=== PATIENT | female | born 1980 | race Caucasian/White ===

== ENCOUNTER 2020-03-24 20:36 | Emergency (ER) | payer BC ==
--- NOTE | 2020-03-24 20:38 | ERPHSYRPT ---
- History of Present Illness Time Seen by Provider: 03/24/20 20:38 Source: patient Exam Limitations: no limitations Physician History: This is a 39-year-old white female who sees a pain specialist for headaches and for back pain. She sees Dr. Webber for her pain medication. She has a MRI scan of the spine scheduled for tomorrow. She has had a headache that has been persistent for 4 days. It is typical for her migraines. She only been using [id number] medication which has not helped. She is not on any medications for migraine headaches. She has an appointment to see a neurologist on 04/01/2020. She denies trauma to her head. She has no bleeding disorders. She has no visual changes. Timing/Duration: day(s) (Approximately 4) Quality: aching, throbbing Head Pain Location: global Severity of Pain-Max: moderate Severity of Pain-Current: moderate Recent Head Trauma: occasional headaches Associated Symptoms: denies symptoms, seizures, No neck pain, No sensitive to light, No stiff neck, No vision changes, No visual disturbance Previous symptoms: same symptoms as today, no recent treatment Allergies/Adverse Reactions: nortriptyline Allergy (Verified 03/24/20 21:02) Home Medications: No Reportable Medications [No Reported Medications] 03/24/20 [History] Travel Risk - International Travel Have you traveled outside of the country in past 3 weeks: No - Coronavirus Screening Are you exhibiting any of the following symptoms?: No Close contact with a COVID-19 positive Pt in past 14-21 Days: No - Review of Systems Constitutional: No Symptoms Eyes: No Symptoms Ears, Nose, & Throat: No Symptoms Respiratory: No Symptoms Cardiac: No Symptoms Abdominal/Gastrointestinal: No Symptoms Genitourinary Symptoms: No Symptoms Musculoskeletal: No Symptoms Skin: No Symptoms Neurological: Headache, Sensory Changes Psychological: No Symptoms Endocrine: No Symptoms Hematologic/Lymphatic: No Symptoms Immunological/Allergic: No Symptoms All Other Systems: Reviewed and Negative - Past Medical History Pertinent Past Medical History: Yes Neurological History: Seizures Cardiac History: No Pertinent History Respiratory History: No Pertinent History Endocrine Medical History: No Pertinent History Musculoskeletal History: No Pertinent History - Past Surgical History Past Surgical History: Yes Neuro Surgical History: No Pertinent History Cardiac: No Pertinent History Respiratory: No Pertinent History Gastrointestinal: No Pertinent History Genitourinary: No Pertinent History Musculoskeletal: No Pertinent History Female Surgical History: No Pertinent History - Nursing Vital Signs Nursing Vital Signs: Initial Vital Signs Temperature 99.1 F 03/24/20 20:45 Pulse Rate 79 03/24/20 20:45 Respiratory Rate 18 03/24/20 20:45 Blood Pressure 129/76 03/24/20 20:45 O2 Sat by Pulse Oximetry 99 03/24/20 20:45 Pain Scale Pain Intensity 8 - Physical Exam General Appearance: mild distress, alert, anxiety Eye Exam: PERRL/EOMI, eyes nml inspection Ears, Nose, Throat Exam: normal ENT inspection, moist mucous membranes Neck Exam: normal inspection, non-tender, supple, full range of motion Respiratory Exam: normal breath sounds, lungs clear, No chest tenderness, No respiratory distress Cardiovascular Exam: regular rate/rhythm, normal heart sounds, normal peripheral pulses Gastrointestinal/Abdominal Exam: No tenderness Back Exam: normal inspection, normal range of motion, No CVA tenderness, No vertebral tenderness Extremity Exam: normal inspection, normal range of motion, pelvis stable Mental Status Exam: alert, oriented x 3, cooperative medical front desk coordinator Exam: normal hearing, normal speech, PERRL Coordination/Gait Exam: normal finger to nose, normal gait, normal cerebellar function Motor/Sensory Exam: no motor deficit, no sensory deficit, no pronator drift Skin Exam: normal color, warm, dry Lymphatic Exam: No adenopathy SpO2 Interpretation: normal O2 Delivery: Room Air - Course Nursing assessment & vital signs reviewed: Yes - Progress Progress: improved, re-examined Air Movement: good Progress Note: 03/24/20 21:14 Medical decision making: This patient did not have any head trauma. She states her headache is typical migraine for her. She has an MRI scheduled for tomorrow and does not want a CAT scan of her head today. She has a ride home and will provide her with Dilaudid and Phenergan intramuscularly. Blood Culture(s) Obtained: No Antibiotics given: No Counseled pt/family regarding: diagnosis, need for follow-up - Departure Departure Disposition: Home Clinical Impression: Migraine headache Condition: Stable Critical Care Time: No Referrals: FRANCO VASQUEZ MD [Primary Care Provider] - Additional Instructions: Keep your appointment for MRI tomorrow. Follow-up with your neurologist appointment on 04/01/2020. Call your prescribing physician tomorrow for further management of your headache if it persists.
[2020-03-24] MEDS ORDERED: Phenergan 25 MG INJ IM ONE (21:16)
[2020-03-24] MEDS ORDERED: Hydromorphone 1 mg/ml Injection IM ONE (21:16)
[2020-03-24] MEDS ORDERED: Phenergan 25 MG INJ ONE (21:18)
[2020-03-24] MEDS ORDERED: Hydromorphone 1 mg/ml Injection ONE (21:18)
[2020-03-24 22:05] VITALS: BP 120/61; PULSE 74; O2SAT 98
== END 2020-03-24 21:57 | disposition home or self-care (01) ==
LOC: ED 20:36
DX: G43.909 Migraine, unspecified, not intractable, without status migrainosus (principal)
CPT/HCPCS: 96372; 99284; J1170; J2550

== ENCOUNTER 2025-03-03 13:21 | Emergency (ER) | payer BC ==
[2025-03-03 13:52] VITALS: PULSE 80; RESP 14; TEMP 97.4; O2SAT 99
[2025-03-03] MEDS ORDERED: ZOFRAN ODT 4 MG ONE (13:56)
[2025-03-03] MEDS: ZOFRAN ODT 4 MG PO ONE (13:57)
--- NOTE | 2025-03-03 13:57 | XRAY ---
Indication: Lateral foot injury. Comparison: None 3 nonweightbearing views right foot demonstrates tiny posterior/plantar heel spurs and small curvilinear cuboid/tiny navicular accessory ossicles. No acute bony, articular, or soft tissue abnormalities.
--- NOTE | 2025-03-03 14:05 | ERPHSYRPT ---
- History of Present Illness Time Seen by Provider: 03/03/25 14:06 Source: patient Exam Limitations: no limitations Patient Subjective Stated Complaint: patient fell down 2 steps about an hour ago and hurt her right foot Triage Nursing Assessment: patient arrives to ed via private vehicle in w/c, patient able to transfer over to ed bed with assist of one, unable to bear weight on right foot, pedal pulse palpable, patient has swelling/bruising noted to right foot/ankle Physician History: 44-year-old female with history of seizures, anxiety, depression presents to our ED for evaluation of pain to her right foot. Patient states she inverted her right foot. Injury occurred approximately 2 hours prior to arrival. No other injuries reported. Pain described as an ache that is localized. No radiation. Pain worse with weightbearing palpation and movement. Patient otherwise feels well. No associated ankle knee or hip pain. Patient voices no other complaints or concerns at this time. Portions of this note were created with voice recognition technology. There may be grammatical, spelling, punctuation or sound alike errors Method of Injury: twisted Occurred: just prior to arrival Quality: constant Severity of Pain-Max: moderate Severity of Pain-Current: mild Lower Extremities Pain: foot: right Modifying Factors: Improves With: movement (Weightbearing) Associated Symptoms: other (Mild nausea secondary to pain) Allergies/Adverse Reactions: nortriptyline Allergy (Verified 03/03/25 13:37) Hx Tetanus, Diphtheria Vaccination/Date Given: Yes Hx Influenza Vaccination/Date Given: No Hx Pneumococcal Vaccination/Date Given: No Travel Risk - International Travel Have you traveled outside of the country in past 3 weeks: No - Emerging Infectious Disease Are you exhibiting symptoms associated with any current EIDs: No - Review of Systems All Other Systems: Reviewed and Negative - Past Medical History Pertinent Past Medical History: Yes Neurological History: Seizures Cardiac History: No Pertinent History Respiratory History: No Pertinent History Endocrine Medical History: No Pertinent History Musculoskeletal History: No Pertinent History Psycho-Social History: Anxiety, Depression Other Medical History: epilepsy - Past Surgical History Past Surgical History: Yes Neuro Surgical History: No Pertinent History Cardiac: No Pertinent History Respiratory: No Pertinent History Gastrointestinal: Cholecystectomy Genitourinary: No Pertinent History Musculoskeletal: No Pertinent History Female Surgical History: Hysterectomy Other Surgical History: fusion in back- L4, L5, carpel tunnel bilat hands - Female History Hx Now: No - Social History Smoking Status: Never smoker Exposure to second hand smoke: No Drug Use: none - Social Determinants of Health Will the patient participate in the screening: Yes Do you worry about a steady place to live?: No Do you have any problems with any of the following?: No known problems In the past 12 months,have you had to go without utilities?: No Transportation Issues: No Has anyone in your support network made you feel unsafe?: No Have you or anyone in your house had to go w/o enough food: No - Nursing Vital Signs Nursing Vital Signs: Initial Vital Signs Temperature 97.4 F 03/03/25 13:21 Pulse Rate 80 03/03/25 13:21 Respiratory Rate 14 03/03/25 13:21 Blood Pressure 146/82 03/03/25 13:21 O2 Sat by Pulse Oximetry 99 03/03/25 13:21 Pain Scale Pain Intensity 8 - Physical Exam General Appearance: alert Eyes, Ears, Nose, Throat Exam: moist mucous membranes Neck Exam: non-tender, supple Cardiovascular/Respiratory Exam: regular rate/rhythm, no respiratory distress Gastrointestinal/Abdominal Exam: non-tender Back Exam: normal inspection, No vertebral tenderness Hips Exam: bilateral: non-tender, normal inspection, normal range of motion, no evidence of injury Legs Exam: bilateral leg: non-tender, normal inspection, normal range of motion, no evidence of injury Knees Exam: bilateral knee: non-tender, normal inspection, normal range of motion, no evidence of injury Ankle Exam: bilateral ankle: non-tender, normal inspection, normal range of motion, no evidence of injury Foot Exam: right foot: pain, soft tissue tenderness, swelling, other (The involved right lower extremities neurovasc intact distally compartments are soft cap refill less than 2 seconds. There is swelling and tenderness over the anterolateral aspect of the right foot. No open or draining lesions), left foot: non-tender, normal inspection, normal range of motion, no evidence of injury Neuro/Tendon Exam: normal sensation, normal motor functions Mental Status Exam: alert, oriented x 3, cooperative Skin Exam: normal color, warm, dry SpO2 Interpretation: normal SpO2: 99 O2 Delivery: Room Air - Course Nursing assessment & vital signs reviewed: Yes - Radiology Exams Foot X-ray Interpretation: Teleradiologist Report (No fracture or dislocation.) Ordered Tests: Active Orders 24 hr Category Date Time Status FOOT (MINIMUM 3 VIEWS) Stat Exams 03/03/25 13:41 Completed Medication Summary Discontinued Medications Generic Name Dose Route Start Last Admin Trade Name Brad PRN Reason Stop Dose Admin Ketorolac Tromethamine 30 mg 03/03/25 14:03 Ketorolac Tromethamine 30 Mg/Ml Inj IM 03/03/25 14:04 STAT ONE Ondansetron HCl 4 mg 03/03/25 13:53 03/03/25 13:57 Zofran 4 Mg/Udtablet Orally Disintegrating PO 03/03/25 13:54 4 mg STAT ONE Administration Ondansetron HCl Confirm 03/03/25 13:56 Zofran 4 Mg/Udtablet Orally Disintegrating Administered 03/03/25 13:57 Dose 4 mg .ROUTE .STK-MED ONE - Progress Progress: improved Progress Note: 44-year-old female inverted right foot. Physical exam reveals some swelling and tenderness to the anterolateral aspect of the right foot. No open or draining lesions. X-ray negative for fracture or dislocation. Patient unable to bear weight. Patient referred to the orthopedic clinic. Crutches provided. A prescription for Toradol forwarded to patient's pharmacy. Patient received IM Toradol in our ED. No indication for further workup will discharge home. Patient voices no other complaints or concerns at this time. Portions of this note were created with voice recognition technology. There may be grammatical, spelling, punctuation or sound alike errors History obtained from patient Differential diagnosis includes fracture, sprain, contusion, tendinitis Dr. Reeder independently reviewed and interpreted x-ray of the right foot. No fracture or dislocation observed. This is a preliminary read. Formal read by Dr. Moss shows no fracture or dislocation. Patient received Toradol for pain control. Complexity of problems addressed is moderate acute complicated. No critical care time. Complexity of data reviewed and analyzed is moderate. Test ordered test reviewed results analyzed and correlated clinically with history and physical exam. Risk of complication and or risk of morbidity/mortality of patient management is moderate. Patient received IM Toradol in our ED. A prescription for the same was forwarded to patient's pharmacy. Vital stable. Time spent to discharge patient is approximately 15 minutes. Plan of care established for shared decision making. No social determinants of health present to impede follow-up. 03/03/25 14:15 Counseled pt/family regarding: diagnosis, need for follow-up, rad results - Departure Departure Disposition: Home Clinical Impression: Foot sprain Condition: Stable Critical Care Time: No Referrals: ALEJANDRA RAO IMPREGNATOR OPERATOR [Primary Care Provider, UNKNOWN] - Follow up/PCP as directed Additional Instructions: Discharge/Care Plan SANTI BATISTA was seen on 03/03/25 in the Emergency Room. The patient was counseled regarding Diagnosis,Lab results, Imaging studies, need for follow up and when to return to the Emergency Room. Prescriptions given: Discharge Note I have spoken with the patient and/or caregivers. I have explained the patient's condition, diagnosis and treatment plan based on the information available to me at this time. I have answered the patient's and/or caregiver's questions and addressed any concerns. The patient and/or caregivers have as good understanding of the patient's diagnosis, condition and treatment plan as can be expected at this point. The vital signs have been stable. The patient's condition is stable and appropriate for discharge from the emergency department. The patient will pursue further outpatient evaluation with the primary care physician or other designated or consulting physician as outlined in the discharge instructions. The patient and/or caregivers are agreeable to this plan of care and follow-up instructions have been explained in detail. The patient and/or caregivers have received these instruction. The patient/and or caregivers are aware that any significant change in condition or worsening of symptoms should prompt an immediate return to this or the closest emergency department or call 911. Prescriptions: Ketorolac Trometh 10 mg Tab [TORAdol 10 MG TABLET] 10 mg PO TID 5 Days #15 tablet Outpatient Orders: Ortho Referral Time Frame: 1 Day, Facility: [facility], Location: [facility]THO CLINIC
[2025-03-03] MEDS ORDERED: TORAdol 30 mg Injection ONE (14:11)
[2025-03-03] MEDS: TORAdol 30 mg Injection IM ONE (14:12)
[2025-03-03 14:35] VITALS: BP 101/79
== END 2025-03-03 14:35 | disposition home or self-care (01) ==
LOC: ED 13:21
DX: S93.601A Unspecified sprain of right foot, initial encounter (principal); W10.9XXA Fall (on) (from) unspecified stairs and steps, initial encounter; Z79.899 Other long term (current) drug therapy